=== PATIENT | male | born 1960 | race Caucasian/White ===

== ENCOUNTER 2020-04-04 12:54 | Inpatient (IN) | payer MEDICARE, SELFPAY ==
[2020-04-04] VITALS (11 sets, daily range): BP systolic 143–164; BP diastolic 75–92; PULSE 85–107; RESP 14–28; TEMP 36.6–37.1; O2SAT 82–98; BMI 36.6; BMI 43.9
--- NOTE | 2020-04-04 12:50 | ECG_ITS ---
APPROVED REPORT Exam: Resting ECG HR:108 bpm ECG Measurements Heart Rate 108 AXES MD 192 P 36 QRSd 100 QRS -4 QT 322 T 99 QTc 431 Conclusion Sinus tachycardia Minimal voltage criteria for LVH, may be normal variant Septal infarct, age undetermined Abnormal ECG Electronically signed by : Clark Chavez, 04/05/2020 08:59:57
--- NOTE | 2020-04-04 13:03 | HMH.EDSOB ---
ED Disposition Clinical Impression: Fluid retention Pulmonary edema Qualifiers: Chronicity: chronic Qualified Code(s): J81.1 - Chronic pulmonary edema Acute respiratory failure Qualifiers: Respiratory failure complication: hypoxia Qualified Code(s): J96.01 - Acute respiratory failure with hypoxia Disposition: Admitted As Inpatient Condition on Discharge: Good - Critical Care Critical Care Time: No Attestation: On , the high probability of a clinically significant, sudden or life threatening deterioration of the following system(s) required my full and direct attention, intervention and personal management. The time I documented below is in addition to time spent performing reported procedures but includes the following listed in this critical care notation. Medical Decision Making - Medical Records Medical records reviewed: Yes: I reviewed the patient's medical records. - [place] Inquiry Pt receiving controlled substance: No Vital Signs: 04/04/20 12:54 04/04/20 13:28 Temperature 98.2 F Temperature Source Oral Pulse Rate [Radial] 107 H 106 H Respiratory Rate 28 H 20 Blood Pressure [Right Arm] 160/88 H 156/92 H Blood Pressure Mean [Right Arm] 112 113 Blood Pressure Position [Right Arm] Sitting 02 Sat by Pulse Oximetry 82 L 92 L Oxygen Delivery Method Room Air - Lab Data Lab results reviewed: Yes: I reviewed the patient's lab results. Lab Results 04/04/20 12:30: WBC 9.3, RBC 3.76 L, Hgb 9.4 L, Hct 31.9 L, MCV 84.7, MCH 24.9 L, MCHC 29.4 L, RDW 15.0, Plt Count 204, MPV 7.6, Neut % (Auto) 84.4 H, Lymph % (Auto) 8.7 L, [place] % (Auto) 5.8, Eos % (Auto) 0.8, Baso % (Auto) 0.3, Neut # (Auto) 7.9 H, Lymph # (Auto) 0.8, [place] # (Auto) 0.5, Eos # (Auto) 0.1, Baso # (Auto) 0.0 04/04/20 12:30: Sodium 134 L, Potassium 5.7 H, Chloride 103, Carbon Dioxide 22, Anion Gap 14.7, BUN 26 H, Creatinine 1.00, Estimated Creat Clear 144, Estimated GFR 76, Est GFR ( Amer) 92, Glucose 363 H, Calcium 8.9, Total Bilirubin 0.6, AST 25, ALT 19, Alkaline Phosphatase 123, Troponin I 0.07 H, NT-Pro-B Natriuret Pep 638 H, Total Protein 7.8, Albumin 4.0, Globulin 3.8 H, Albumin/Globulin Ratio 1.1 04/04/20 14:00: Urine Color Yellow, Urine Appearance Clear, Urine pH 5.5, Ur Specific [place] 1.020, Urine Protein 1+, Urine Glucose (UA) 2+, Urine Ketones Negative, Urine Blood 1+, Urine Nitrate Negative, Urine Bilirubin Negative, Urine Urobilinogen 0.2, Ur Leukocyte Esterase Negative Result diagrams: 04/04/20 12:30 04/04/20 12:30 Orders (Tests/Meds): ED MEDICATIONS Discontinued Medications Generic Name Dose Route Start Last Admin Trade Name Freq PRN Reason Stop Dose Admin Furosemide 60 mg 04/04/20 13:13 04/04/20 13:33 Furosemide 40mg/4ml Vial IV 04/04/20 13:14 60 mg ONCE ONE Administration ORDERS Category Date Time Status Chest XR -- portable [XR chest portable] Stat Exams 04/04/20 13:13 Taken Covid-19 Nasal PCR ([facility]) Routine Lab 04/04/20 13:25 Received Troponin I Q3H Lab 04/04/20 16:15 Ordered Troponin I Q3H Lab 04/04/20 19:15 Ordered Urinalysis and Microscopic Stat Lab 04/04/20 14:00 Results CA echo doppler complete Stat Y 04/04/20 14:10 Ordered - Radiology Data #1 Image(s): Chest Image Reviewed: Yes I reviewed the patient's radiology image Bilateral pulmonary edema - ECG Data Tracing #1 EKG 1250 shows sinus tachycardia with a rate of 108. No acute ST segment elevation or depression. No hyperacute T waves. Normal intervals. EKG interpreted by me. Medical Decision Narrative: Patient with slightly elevated troponin, nonischemic EKG and no chest pain. This is likely secondary to his fluid retention, possibly undiagnosed CHF. His chest x-ray shows bilateral pulmonary edema. Exam findings consistent with significant fluid retention. He has a nontender abdomen. Creatinine within normal limits. Patient was given Lasix IV. No leukocytosis or fever that would suggest ac
--- NOTE | 2020-04-04 13:13 | XR_ITS ---
PROCEDURE: XR CHEST PORTABLE Referring Doctor: Jason Tao Patient Age:60Y CLINICAL HISTORY: soa Swelling legs abdomen. Former smoker. No surgery COMPARISON: No exams were available for comparison FINDINGS: Upright portable CXR. Vascular congestion and CHF with bilateral pulmonary edema Pulmonary edema with septal lines most evident towards the lung bases. Difficult to exclude additional pneumonic infiltrate left base but most likely appearance is due to the CHF/pulmonary edema. No prior studies available for comparison.. Only borderline/mild cardiomegaly. CP angle sharp with no evident pleural effusions on plain film. equipment monitor phototypesetting leads in place IMPRESSION: . CHF with bilateral pulmonary edema Dictated by: Cali Montes MD 04/04/2020 16:01 Cali Montes MD in [place] 04/04/2020 16:01
[2020-04-04 13:17] LABS: Basophils % 0.3 % (0.1-2.0); Eosinophils # 0.1 K/mm3 (0.0-0.4); Eosinophils % 0.8 % (0.1-12.0); Hematocrit 31.9 % (42.0-52.0); Hemoglobin 9.4 g/dL (14.1-18.0); Lymphocytes # 0.8 K/mm3 (0.7-4.5); Lymphocytes % 8.7 % (10-50); Mean Corpuscular HGB Conc 29.4 g/dL (31.8-35.4); Mean Corpuscular Hemoglobin 24.9 pg (27.0-31.2); Mean Corpuscular Volume 84.7 fl (80-94); Mean Platelet Volume 7.6 fl (7.4-10.4); Monocytes # 0.5 K/mm3 (0.1-1.0); Monocytes % 5.8 % (1.7-9.3); Neutrophils # 7.9 K/mm3 (1.8-7.8); Neutrophils % 84.4 % (37.0-80.0); Platelet Count 204 K/mm3 (142-424); Red Blood Count 3.76 M/mm3 (4.60-6.20); White Blood Count 9.3 K/mm3 (4.8-10.8)
[2020-04-04 13:18] LABS: Chloride 103 mmol/L (98-107); Potassium 5.7 mmoL/L (3.5-5.1); Sodium 134 mmol/L (136-145)
[2020-04-04 13:20] LABS: Alanine Aminotransferase 19 U/L (12-78); Aspartate Amino Transferase 25 U/L (17-59); Blood Urea Nitrogen 26 mg/dl (9-20); Creatinine Clearance Estimated 144 mL/min (50-200); Estimated Glomerular Filt Rate 76 ml/min (>60); GFR (African American) 92 ML/MIN (>60)
[2020-04-04 13:21] LABS: Albumin/Globulin Ratio 1.1 (1.1-1.8); Alkaline Phosphatase 123 U/L (38-126); Anion Gap 14.7 mEq/L (5-15); Bilirubin,Total 0.6 mg/dl (0.2-1.3); Calcium 8.9 mg/dl (8.4-10.2); Carbon Dioxide 22 mmol/L (22.0-30.0); Globulin 3.8 g/dL (1.3-3.2); Glucose 363 mg/dl (74-100); Total Protein,Serum 7.8 g/dl (6.3-8.2)
[2020-04-04 13:30] LABS: NT Pro Brain Natriuretic Pep. 638 pg/mL (0-125)
[2020-04-04 13:34] LABS: Troponin I 0.07 ng/ml (0.00-0.034)
[2020-04-04 14:06] LABS: Microscopic, Urine URINE MICROSCOPIC (MICROSCOPIC)
[2020-04-04 14:08] LABS: Appearance,Urine CLEAR (Clear); Bilirubin,Urine Negative (Negative); Blood, Urine 1+ (Negative); Color,Urine YELLOW (Yellow); Glucose,Urine (UA) 2+ (Negative); Ketones,Urine Negative (Negative); Leukocyte Esterase,Urine Negative (Negative); Nitrate,Urine Negative (Negative); PH,Urine 5.5 (5.0-8.5); Protein,Urine 1+ (Negative); Urobilinogen,Urine 0.2 EU/dl (0.2)
[2020-04-04 14:19] LABS: Squamous Epithelial Cell,Urine Occasional #/hpf (0-5)
--- NOTE | 2020-04-04 16:01 | PC.NURSE ---
Neg covid swab and notified floor of admission
--- NOTE | 2020-04-04 16:08 | PC.NURSE ---
pt void 1300cc urine
--- NOTE | 2020-04-04 16:18 | PC.NURSE ---
report given to natalia cruz
--- NOTE | 2020-04-04 17:28 | PC.WOUNDNOTE ---
Wound Location: RIGHT FOOT Length:4.5 Width:4 Depth: Undermining Y/N: Tunneling cm: Granulation %: Slough/necrotic tissue %: Inflammation/swelling Y/N: Y Pain and/or tenderness Y/N: Y Exudate: SMALL AMOUNT OF Serosanguinous Odor Y/N: Y
[2020-04-04 18:33] LABS: Troponin I 3.65 ng/ml (0.00-0.034)
--- NOTE | 2020-04-04 18:34 | PC.NURSE ---
Paged Dr. Lund at this time in RE to critical troponin.
--- NOTE | 2020-04-04 19:40 | PC.NURSE ---
Dr. Walton called and ordered metoprolol 50 tartrate mg q 12 po, 40 mg iv lasix. 600 plavix x 1, 81 mg asa q day, 2 inch nitro paste, and lovenox 1 mg/kg per Dr. Wen. See apr. He also ordered an EKG, which was NSR, made him aware. Pt has no complaints at this time and is on 4 L NC. States breathing has eased some, since first arriving to hospital. Report given. VSS
[2020-04-04 22:27] LABS: POC Glucose,Bedside 314 (70-110)
[2020-04-05] VITALS (11 sets, daily range): BP systolic 105–154; BP diastolic 68–81; PULSE 67–90; RESP 18–20; TEMP 36.1–37.4; O2SAT 94–99; BMI 42.5
--- NOTE | 2020-04-05 03:47 | PC.NURSE ---
Pt A&O x4 and has rested well through the night. Pt reports breathing has improved since admission. Pt currently on 4L NC, sats in the mid 90s. Pt has generalized edema, nonpitting edema in BLE, skin taut. Lungs are diminished throughout. Bowel sounds x4, abd round and firm but nontender. R foot ulcer drsg c/d/i. VSS, call light in reach, no concerns at this time.
[2020-04-05 05:29] LABS: POC Glucose,Bedside 187 (70-110)
--- NOTE | 2020-04-05 08:44 | HMH.PHAVTE ---
[facility] Pharmacy VTE Monitoring - Patient Demographics Admission date: 04/04/20 Report Date: 04/05/20 Time: 08:44 Allergies/Adverse Reactions: Patient Allergies bhaskar Allergy (Verified 04/04/20 13:05) Height: 1.88 m Weight: 150.6 kg Patient Problems: Current Active Problems Fluid retention (Acute) Pulmonary edema (Acute) Acute respiratory failure (Acute) - VTE Risk Labs: VTE Related Lab Results Hgb 9.4 g/dL (14.1-18.0) L 04/04/20 12:30 Hct 31.9 % (42.0-52.0) L 04/04/20 12:30 Plt Count 204 K/mm3 (142-424) 04/04/20 12:30 BUN 26 mg/dl (9-20) H 04/04/20 12:30 Creatinine 1.00 mg/dl (0.66-1.25) 04/04/20 12:30 Estimated Creat Clear 144 mL/min (50-200) 04/04/20 12:30 - Prophylaxis VTE Prophylaxis Ordered?: Yes Types of VTE Prophylaxis: TEDS Knee High, Pharmacological Location of Applied Device: Bilateral Lower Extremeties Pharmacologic Type: Enoxaparin
--- NOTE | 2020-04-05 08:48 | HMH.PHAINT ---
MEDICATION RECONCILIATION COMPLETED ON PATIENT USING EXTERNAL FILL HISTORY FROM PHARMACY. -CRICKET BLACK, YSABELD
[2020-04-05 10:01] LABS: Basophils % 0.5 % (0.1-2.0); Eosinophils # 0.2 K/mm3 (0.0-0.4); Eosinophils % 3.1 % (0.1-12.0); Hematocrit 29.5 % (42.0-52.0); Hemoglobin 8.8 g/dL (14.1-18.0); Lymphocytes # 0.8 K/mm3 (0.7-4.5); Lymphocytes % 12.8 % (10-50); Mean Corpuscular Hemoglobin 24.9 pg (27.0-31.2); Mean Corpuscular Volume 83.2 fl (80-94); Mean Platelet Volume 8.9 fl (7.4-10.4); Monocytes # 0.5 K/mm3 (0.1-1.0); Monocytes % 7.6 % (1.7-9.3); Neutrophils # 4.5 K/mm3 (1.8-7.8); Neutrophils % 76.1 % (37.0-80.0); Platelet Count 181 K/mm3 (142-424); Red Blood Count 3.55 M/mm3 (4.60-6.20); Red Cell Distribution Width 15.1 % (11.5-17.5); White Blood Count 5.9 K/mm3 (4.8-10.8)
--- NOTE | 2020-04-05 10:04 | HMH.HP ---
*Admission Date: 04/04/20 *Chief complaint: Shortness of breath *History of present illness: Mr Singh is a 60 year old male who lives in [place], [place] and typical receives his medical care at [facility], where his primary care provider is Dr. Melina Lawson. Patient reports a several week history of progressive leg edema and shortness of breath. He was came to [facility] yesterday for his monthly appointment with a Suboxone provider and while at the clinic became so short of breath that the staff there called 911. He was brought to the ER and found to be profoundly hypoxic. Patient denies chest pain and any previous heart or lung trouble. He smoked a pack of cigarettes per day for about 35 years but quit 8 years ago. He is diabetic but does not know his last A1c but does use insulin. [facility] History Medical History: Reports:: Diabetes Mellitus Type 2, Hypertension Denies:: Cancer, MRSA *Have you ever received a pneumonia vaccine?: No *Have you received a flu vaccine this season?: No Comment:: Opiate addiction, on Suboxone. Neuropathy. Chronic right foot wound. Multiple foot surgeries/amputations Amputation: Yes (R toes all, 2 toes on left) Comment: Open wound sole of right foot, followed by wound care and podiatry - *Social History Smoking Status: Former smoker Alcohol Intake: never *Occupational Status:: disabled *Travel in the last 8 weeks: None Family Hx:: Coronary Artery Disease Review of Systems - Constitutional Denies chills, Denies fever(s) - Eyes Denies blurry vision - ENT Denies change in voice - *Cardiovascular Denies chest pain - *Respiratory Denies cough - *Gastrointestinal Denies abdominal pain - *Genitourinary Denies difficulty urinating - *Musculoskeletal Denies joint pain - Integumentary/Breasts Denies rash - *Neurologic Denies dizziness - Psychiatric Denies confusion - Hematologic/Lymphatic Denies easy bruising Meds Home Medications Medication Instructions Recorded Confirmed Type Amlodipine Besylate [Norvasc 10mg 10 mg PO DAILY 04/04/20 04/04/20 History tablet] Aspirin [Aspirin 81mg chewable 81 mg PO DAILY 04/04/20 04/04/20 History tab] Atorvastatin Calcium [Lipitor 10mg 10 mg PO HS 04/04/20 04/04/20 History Tab] Benazepril HCl 40 mg PO DAILY 04/04/20 04/04/20 History Gabapentin [Gabapentin 300mg Cap] 300 mg PO BID 04/04/20 04/05/20 History Insulin Aspart Prot/Insuln Asp 60 unit SQ BID 04/04/20 04/04/20 History [Novolog Mix 70-30 Vial] Metformin HCl 500 mg PO BIDWM 04/04/20 04/05/20 History Buprenorphine HCl/Naloxone HCl 2 each SL DAILY 04/05/20 04/05/20 History [Buprenorphin-Naloxon 8-2 mg Sl] Terazosin HCl [Hytrin 1mg capsule] 1 mg PO DAILY 04/05/20 04/05/20 History Allergies Allergy/AdvReac Type Severity Reaction Status Date / Time bhaskar Allergy Verified 04/04/20 13:05 Exam Vital signs and Labs for Last 24 Hours: Temp Pulse Resp BP Pulse Ox 97.0 F L 76 20 149/79 H 97 04/05/20 07:56 04/05/20 07:56 04/05/20 07:56 04/05/20 07:56 04/05/20 07:56 Laboratory Results - last 24 hr 04/04/20 12:30: WBC 9.3, RBC 3.76 L, Hgb 9.4 L, Hct 31.9 L, MCV 84.7, MCH 24.9 L, MCHC 29.4 L, RDW 15.0, Plt Count 204, MPV 7.6, Neut % (Auto) 84.4 H, Lymph % (Auto) 8.7 L, [place] % (Auto) 5.8, Eos % (Auto) 0.8, Baso % (Auto) 0.3, Neut # (Auto) 7.9 H, Lymph # (Auto) 0.8, [place] # (Auto) 0.5, Eos # (Auto) 0.1, Baso # (Auto) 0.0 04/04/20 12:30: Sodium 134 L, Potassium 5.7 H, Chloride 103, Carbon Dioxide 22, Anion Gap 14.7, BUN 26 H, Creatinine 1.00, Estimated Creat Clear 144, Estimated GFR 76, Est GFR ( Amer) 92, Glucose 363 H, Calcium 8.9, Total Bilirubin 0.6, AST 25, ALT 19, Alkaline Phosphatase 123, Troponin I 0.07 H, NT-Pro-B Natriuret Pep 638 H, Total Protein 7.8, Albumin 4.0, Globulin 3.8 H, Albumin/Globulin Ratio 1.1 04/04/20 14:00: Urine Color Yellow, Urine Appearance Clear, Urine pH 5.5, Ur Specific [place] 1.020, Urine Prote
[2020-04-05 10:11] LABS: Alanine Aminotransferase 14 U/L (12-78); Albumin Level 3.7 g/dl (3.5-5.0); Alkaline Phosphatase 97 U/L (38-126); Aspartate Amino Transferase 36 U/L (17-59); Bilirubin,Direct 0.1 mg/dl (0.0-0.4); Bilirubin,Indirect 0.4 mg/dL (0.0-0.9); Bilirubin,Total 0.5 mg/dl (0.2-1.3); Bilirubin,Unconjugated 0.5 mg/dL (0.0-1.1); Total Protein,Serum 7.2 g/dl (6.3-8.2)
[2020-04-05 10:12] LABS: Alanine Aminotransferase 14 U/L (12-78); Albumin Level 3.7 g/dl (3.5-5.0); Albumin/Globulin Ratio 1.1 (1.1-1.8); Alkaline Phosphatase 100 U/L (38-126); Anion Gap 9.5 mEq/L (5-15); Aspartate Amino Transferase 29 U/L (17-59); Bilirubin,Total 0.5 mg/dl (0.2-1.3); Blood Urea Nitrogen 26 mg/dl (9-20); Calcium 8.9 mg/dl (8.4-10.2); Carbon Dioxide 30 mmol/L (22.0-30.0); Chloride 101 mmol/L (98-107); Creatinine Clearance Estimated 70 mL/min (50-200); Estimated Glomerular Filt Rate 56 ml/min (>60); GFR (African American) 68 ML/MIN (>60); Globulin 3.5 g/dL (1.3-3.2); Glucose 187 mg/dl (74-100); Potassium 5.5 mmoL/L (3.5-5.1); Sodium 135 mmol/L (136-145); Total Protein,Serum 7.2 g/dl (6.3-8.2)
[2020-04-05 10:41] LABS: Free T4 (Free Thyroxine) 1.14 ng/dl (0.78-2.19)
[2020-04-05 10:43] LABS: Prostate Specific Ag Screen 0.2 ng/ml (0.0-4.0)
--- NOTE | 2020-04-05 10:47 | PC.NURSE ---
1030 reported critical troponin to KENTRELL Reid at this time.
[2020-04-05 12:02] LABS: POC Glucose,Bedside 192 (70-110)
[2020-04-05 16:36] LABS: POC Glucose,Bedside 213 (70-110)
[2020-04-05 20:06] LABS: POC Glucose,Bedside 261 (70-110)
--- NOTE | 2020-04-05 20:24 | PC.NURSE ---
Alert and oriented. No c/o, NAD. CB in reach. No acute changes. Has been up to chair this shift. VSS. FS ACHS with ssi. Has worn 02 intermittently. Sats 94% on RA
[2020-04-06] VITALS (24 sets, daily range): BP systolic 106–179; BP diastolic 66–92; PULSE 56–80; RESP 16–22; TEMP 36.7–37; O2SAT 91–99; BMI 42.0; BMI 42.1
--- NOTE | 2020-04-06 | IR_ITS ---
APPROVED REPORT Patient Location: Inpatient Tire Mold Tester: TRENTON Fletcher RT (R) PROCEDURES Left heart catheterization Left ventriculogram Selective coronary angiogram Drug-eluting stent deployment to the proximal dominant right coronary Drug-eluting stent deployment to the circumflex arteries large first obtuse marginal artery INDICATION Coronary disease, Acute non-ST elevation myocardial infarction Informed consent was obtained prior to the procedure. COMPLICATIONS none Estimated Blood Loss: less than 10 mls TECHNIQUE One percent lidocaine used to anesthetize the right anterior aspect of the wrist. The right radial artery was accessed via the Seldinger technique. A 6 Camb[place]ian sheath was placed in the right radial artery. 2.5 mg of verapamil, 800 mcg of nitroglycerin, 1mg Lidocaine and 5000 U Heparin were given through the arterial sheath. The trap catheter was also used to perform left heart catheterization, left ventriculogram and selective coronary angiogram. At the end of the diagnostic angiogram therapeutic heparin was administered giving a therapeutic ACT. And I Stephanie left guide catheter was used to intubate the right coronary artery and a Choice PT wire was placed distally. A 3.5 x 34 mm resolute [place] stent was deployed at 18 saqib reducing the severe stenosis to 0%. NILO-3 flow was present before and after the procedure. Following this the catheter was placed in the left main artery and a Choice PT wire was placed into the distal first obtuse marginal artery. A 2.75 x 26 mm resolute Harsh stent was deployed at 20 saqib reducing the severe stenosis to 0%. NILO-3 flow was present before and after the procedure. At the end of the procedure the apparatus was removed the sheath was removed and hemostasis was achieved using TR banding patient was transferred to the postop holding in stable addition. ANGIOGRAPHIC RESULTS The left main artery Normal The left anterior descending artery Is proximally calcified mostly external. There is a proximal 30% intraluminal encroachment of the external calcium. Mid segment has 20% nonflow limiting stenoses The circumflex artery Is nondominant it gives rise to a large first obtuse marginal artery which has proximal 70 to 80% concentric stenosis The right coronary artery Is a dominant vessel and has proximal 70% stenosis with mild distal luminal irregularities The GASPAR ventriculogram reveals Not performed The left ventricular end-diastolic pressure Not obtained IMPRESSION Severe two-vessel coronary artery disease Successful stenting of the proximal dominant right coronary severe disease reduced to 0% with 1 drug-eluting stent Successful stenting of the proximal circumflex arteries first obtuse marginal artery severe disease reduced to 0% with 1 drug-eluting stent PLAN 1. Brilinta and aspirin 2. LDL less than 55 3. Cardiac rehabilitation 4. Avoidance of tobacco products 5. Echocardiogram to evaluate diastolic properties and ejection fraction 6. Risk factor modification Electronically signed by : Herson Wen, 04/06/2020 13:45:22
--- NOTE | 2020-04-06 04:35 | PC.NURSE ---
Pt A&O x4, has slept well through the night. No c/o pain or discomfort. Tele notes 1st degree block. BLE have nonpitting edema, generalized edema throughout. Foot ulcer was washed out with saline and rewrapped. Pt on 2L NC, sats in the low 90s. Pt reports improved breathing. NPO since midnight for possible heart cath in the AM. VSS, call light in reach, no concerns at this time.
--- NOTE | 2020-04-06 06:00 | PC.NURSE ---
Jp OLIVARES NOTIFIED OF CONSULT
[2020-04-06 06:06] LABS: POC Glucose,Bedside 158 (70-110)
--- NOTE | 2020-04-06 08:00 | CA_ITS ---
APPROVED REPORT EXAM: Comprehensive 2D, Doppler, and color-flow Echocardiogram Customer Support Associate: Olivia Dewey RT(R) Ht: 6 ft 2 in Wt: 285lbs BSA: 2.53 BP: 156/92 mmHg Indications: edema, HTN, DM, elevated troponin, nonischemic EKG, rule out CHF 2D Dimensions LVOT 2.54 cm (M/F) 1.5-2.5 M-Mode Dimensions RVDd 2.48 cm (0.9-2.6) LA Diam 4.57 cm (1.9-4.0) LVDd 6.50 cm (3.5-5.7) Ao Diam 3.15 cm (2.0-3.7) LVDs 3.93 cm (3.5-5.7) IVSd 0.94 cm (0.6-1.1) PWd 1.26 cm (0.6-1.1) EF (Teich) 68.90% FS 39.50% EDV (Teich) 216.00 mL ESV (Teich) 67.10 mL LV Diastology E Decel Time 183.00 (160-240 msec) E/A Ratio 1.0 MED E' 10.20 (< 7 cm/sec) E'/MED E' Ratio 8.73 (>14) LAT E' 7.80 (<10 cm/sec) E/LAT E' Ratio 11.41 (>14) Mitral Valve MV E Max Adilson. 89.00 (40-130 cm/s) MV A Velocity 89.00 (40-130 cm/s) E/A Ratio 1.00 MV Decel. Time 183.00 (160-240 ms) MV PHT 54.00 ms Tricuspid Valve TR P. Velocity 258.00 cm/s RAP Estimate 10.00 mmHg RVSP 36.60 mmHg Left Ventricle Left atrium is mildly enlarged, left ventricle is normal size, mild concentric left ventricular hypertrophy, visually estimated ejection fraction 50%, there is abnormal septal motion. Grade 1 diastolic dysfunction seen without tissue Doppler evidence of raise left atrial pressure. Right Ventricle Right atrium and right ventricle are normal size and contractility. Aortic Valve Aortic valve is minimally thickened and fibrosed. There is no aortic stenosis or aortic insufficiency. Mitral Valve Mitral valve is grossly normal, there is mild mitral regurgitation. Tricuspid Valve Tricuspid valve is grossly normal, there is mild tricuspid regurgitation, tricuspid regurgitation jet velocity is inadequate for calculation of the right ventricular systolic pressure. Pulmonic Valve Pulmonic valve is poorly visualized. Great Vessels Aortic root is normal size. Pericardium No significant pericardial effusion noted. Conclusion 1. Mildly enlarged left atrium, normal left ventricular size, mild concentric left ventricular hypertrophy, visually estimated ejection fraction 50% with no regional wall motion abnormality, grade 1 diastolic dysfunction seen without tissue Doppler evidence of raise left atrial pressure. 2. Mild mitral and tricuspid regurgitation. 3. No significant pericardial effusion noted. Electronically signed by : Michael Reynolds, 04/06/2020 20:11:44
--- NOTE | 2020-04-06 09:07 | HMH.ACPN2 ---
<Marley Dalal - Last Filed: 04/06/20 09:07> Internal Medicine - PN: Subj *Date: 04/06/20 *Time: 09:07 Interval history: Patient states his breathing is fine this morning. He states that he has never had any chest pain. Echo was completed this a.m. He is n.p.o. for cardiac visit. He ate fine yesterday. He states since he is been diuresed his breathing is back to normal. He is concerned about his foot wound and completing wound care as per wound care clinic. Laboratory data this morning show hemoglobin of 8.8 hematocrit of 29.5. Troponin I has been elevated at 0.07, 3.65, and then 3.1 all. Weight has decreased by 5 pounds with greater than 4 L urinary output yesterday. Exam Vital signs and Labs for Last 24 Hours: Temp Pulse Resp BP Pulse Ox 98.6 F 66 18 167/73 H 96 04/06/20 07:33 04/06/20 07:33 04/06/20 07:33 04/06/20 07:33 04/06/20 07:33 Laboratory Results - last 24 hr 04/05/20 09:50: Total Bilirubin 0.5, Direct Bilirubin 0.1, Conjugated Bilirubin 0.0, Indirect Bilirubin 0.4, Unconjugated Bilirubin 0.5, AST 36 D, ALT 14 D, Alkaline Phosphatase 97, Troponin I 3.10 H, Total Protein 7.2, Albumin 3.7, PSA Screen 0.2, TSH 0.70 04/05/20 09:50: Free T4 1.14 04/05/20 09:50: WBC 5.9 D, RBC 3.55 L, Hgb 8.8 L, Hct 29.5 L, MCV 83.2, MCH 24.9 L, MCHC 30.0 L, RDW 15.1, Plt Count 181, MPV 8.9, Neut % (Auto) 76.1, Lymph % (Auto) 12.8, [place] % (Auto) 7.6, Eos % (Auto) 3.1, Baso % (Auto) 0.5, Neut # (Auto) 4.5, Lymph # (Auto) 0.8, [place] # (Auto) 0.5, Eos # (Auto) 0.2, Baso # (Auto) 0.0 04/05/20 09:50: Sodium 135 L, Potassium 5.5 H, Chloride 101, Carbon Dioxide 30 D, Anion Gap 9.5, BUN 26 H, Creatinine 1.30 H D, Estimated Creat Clear 70, Estimated GFR 56 L, Est GFR ( Amer) 68 D, Glucose 187 H D, Calcium 8.9, Total Bilirubin 0.5, AST 29, ALT 14, Alkaline Phosphatase 100, Total Protein 7.2, Albumin 3.7, Globulin 3.5 H, Albumin/Globulin Ratio 1.1 04/05/20 11:54: POC Glucose 192 H 04/05/20 16:27: POC Glucose 213 H 04/05/20 19:49: POC Glucose 261 H 04/06/20 05:54: POC Glucose 158 H I & O for Last 24 hours: Intake & Output 04/03/20 04/04/20 04/05/20 04/06/20 11:59 11:59 11:59 11:59 Intake Total 1160 / 1160 720 / 720 Output Total 4125 / 4125 650 / 650 Balance -2965 / -2965 70 / 70 Weight 332 lb 0.258 oz 327 lb 9.71 oz - Constitutional no acute distress Comments: Lying in bed and appears comfortable. Speaks without dyspnea. - *Routine Respiratory Exam Present: wheezes (Rare), crackles ([place] on the right) - *Routine Cardiovascular Exam Present: RRR - *Routine Abdominal Exam Present: soft, normoactive bowel sounds, tenderness, obese - *Routine Extremities Exam Present: edema (Right leg is larger than the left) Comments: Dressing on right foot clean and dry - *Routine Neurological Exam Present: alert, oriented X3 Assessment and Plan (1) Acute respiratory failure with hypoxia Status: Acute Category: Medical Code(s): J96.01 - Acute respiratory failure with hypoxia (2) Elevated troponin I level Status: Acute Category: Medical Code(s): R77.8 - Other specified abnormalities of plasma proteins (3) Non-STEMI (non-ST elevated myocardial infarction) Status: Acute Category: Medical Code(s): I21.4 - Non-ST elevation (NSTEMI) myocardial infarction (4) Diabetes mellitus Status: Acute Category: Medical Code(s): E11.9 - Type 2 diabetes mellitus without complications (5) HTN (hypertension) Status: Acute Category: Medical Code(s): I10 - Essential (primary) hypertension (6) Obesity Status: Acute Category: Medical Code(s): E66.9 - Obesity, unspecified (7) Fluid retention Status: Acute Category: Medical Code(s): R60.9 - Edema, unspecified (8) Pulmonary edema Status: Acute Qualifiers: Chronicity: chronic Qualified Code(s): J81.1 - Chronic pulmonary edema Category: Medical Code(s): J81.1 - Chronic pulmonary edema (9) Wound of
[2020-04-06 09:43] LABS: Basophils % 0.1 % (0.1-2.0); Eosinophils # 0.2 K/mm3 (0.0-0.4); Eosinophils % 3.5 % (0.1-12.0); Hemoglobin 9.3 g/dL (14.1-18.0); Lymphocytes # 1.3 K/mm3 (0.7-4.5); Mean Corpuscular HGB Conc 30.1 g/dL (31.8-35.4); Mean Corpuscular Hemoglobin 24.7 pg (27.0-31.2); Mean Platelet Volume 8.8 fl (7.4-10.4); Monocytes # 0.5 K/mm3 (0.1-1.0); Monocytes % 7.9 % (1.7-9.3); Neutrophils # 4.6 K/mm3 (1.8-7.8); Neutrophils % 69.4 % (37.0-80.0); Platelet Count 214 K/mm3 (142-424); Red Blood Count 3.78 M/mm3 (4.60-6.20); White Blood Count 6.6 K/mm3 (4.8-10.8)
[2020-04-06 09:49] LABS: Chloride 102 mmol/L (98-107); Sodium 136 mmol/L (136-145)
[2020-04-06 09:50] LABS: Potassium 5.3 mmoL/L (3.5-5.1)
[2020-04-06 09:52] LABS: Blood Urea Nitrogen 26 mg/dl (9-20); Creatinine Clearance Estimated 76 mL/min (50-200); Estimated Glomerular Filt Rate 62 ml/min (>60); GFR (African American) 75 ML/MIN (>60)
[2020-04-06 09:53] LABS: Anion Gap 7.3 mEq/L (5-15); Calcium 9.1 mg/dl (8.4-10.2); Carbon Dioxide 32 mmol/L (22.0-30.0); Glucose 147 mg/dl (74-100)
--- NOTE | 2020-04-06 10:00 | ECG_ITS ---
APPROVED REPORT Exam: Resting ECG HR:63 bpm ECG Measurements Heart Rate 63 AXES DC 224 P 50 QRSd 96 QRS 11 QT 382 T 55 QTc 390 Conclusion Sinus rhythm with 1st degree AV block Otherwise normal ECG Electronically signed by : Clark Chavez, 04/06/2020 17:39:28
--- NOTE | 2020-04-06 10:10 | HMH.CNCARD ---
History of Present Illness Consult date: 04/06/20 Requesting physician: Zach Walton Consult reason: shortness of breath Chief complaint: SOA, edema Additional Medical History:: 1. History of tobacco use, discontinued 9 years ago 2. History of opioid abuse related to multiple surgeries of the lower extremities, currently in Suboxone clinic 3. Diabetes mellitus, insulin requiring A. Bilateral foot surgeries with loss of toes on the left foot and transmetatarsal amputation of right foot 4. Hypertension 5. Hyperlipidemia 6. Patient was adopted 7. Anemia, likely related to chronic disease History of present illness: Mr Singh is a 60 year old male who lives in [place], [place] and typical receives his medical care at [facility], where his primary care provider is Dr. Melina Lawson. Patient reports a several week history of progressive leg edema and shortness of breath. He was came to [place] yesterday for his monthly appointment with a Suboxone provider and while at the clinic became so short of breath that the staff there called 911. He was brought to the ER and found to be profoundly hypoxic. Patient denies chest pain and any previous heart or lung trouble. He smoked a pack of cigarettes per day for about 35 years but quit 8 years ago. He is diabetic but does not know his last A1c but does use insulin. The above per Dr. Walton. Patient denies any exertional chest pain, pressure or tightness but does relate significant decrease in his exercise capacity over the last 1 to 2 weeks. [facility] History Medical History: Reports:: Diabetes Mellitus Type 2, Hypertension Denies:: Cancer, MRSA *Have you ever received a pneumonia vaccine?: No *Have you received a flu vaccine this season?: No Amputation: Yes (R toes all, 2 toes on left) - *Social History Smoking Status: Former smoker Alcohol Intake: never *Occupational Status:: disabled *Travel in the last 8 weeks: None Family Hx:: Coronary Artery Disease Meds Home Medications Medication Instructions Recorded Confirmed Type Amlodipine Besylate [Norvasc 10mg 10 mg PO DAILY 04/04/20 04/04/20 History tablet] Aspirin [Aspirin 81mg chewable 81 mg PO DAILY 04/04/20 04/04/20 History tab] Atorvastatin Calcium [Lipitor 10mg 10 mg PO HS 04/04/20 04/04/20 History Tab] Benazepril HCl 40 mg PO DAILY 04/04/20 04/04/20 History Gabapentin [Gabapentin 300mg Cap] 300 mg PO BID 04/04/20 04/05/20 History Insulin Aspart Prot/Insuln Asp 60 unit SQ BID 04/04/20 04/04/20 History [Novolog Mix 70-30 Vial] Metformin HCl 500 mg PO BIDWM 04/04/20 04/05/20 History Buprenorphine HCl/Naloxone HCl 2 each SL DAILY 04/05/20 04/05/20 History [Buprenorphin-Naloxon 8-2 mg Sl] Terazosin HCl [Hytrin 1mg capsule] 1 mg PO DAILY 04/05/20 04/05/20 History Allergies Allergy/AdvReac Type Severity Reaction Status Date / Time [email or web address] Allergy Verified 04/04/20 13:05 Exam Vital signs and Labs for Last 24 Hours: Temp Pulse Resp BP Pulse Ox 98.6 F 66 18 167/73 H 96 04/06/20 07:33 04/06/20 07:33 04/06/20 07:33 04/06/20 07:33 04/06/20 07:33 Laboratory Results - last 24 hr 04/05/20 09:50: Total Bilirubin 0.5, Direct Bilirubin 0.1, Conjugated Bilirubin 0.0, Indirect Bilirubin 0.4, Unconjugated Bilirubin 0.5, AST 36 D, ALT 14 D, Alkaline Phosphatase 97, Troponin I 3.10 H, Total Protein 7.2, Albumin 3.7, PSA Screen 0.2, TSH 0.70 04/05/20 09:50: Free T4 1.14 04/05/20 09:50: Sodium 135 L, Potassium 5.5 H, Chloride 101, Carbon Dioxide 30 D, Anion Gap 9.5, BUN 26 H, Creatinine 1.30 H D, Estimated Creat Clear 70, Estimated GFR 56 L, Est GFR ( Amer) 68 D, Glucose 187 H D, Calcium 8.9, Total Bilirubin 0.5, AST 29, ALT 14, Alkaline Phosphatase 100, Total Protein 7.2, Albumin 3.7, Globulin 3.5 H, Albumin/Globulin Ratio 1.1 04/05/20 11:54: POC Glucose 192 H 04/05/20 16:27: POC Glucose 213 H 04/05/20 19:49: POC Glucose 261 H 04/06/20 05:54: POC Glucose 158 H 04/06
--- NOTE | 2020-04-06 12:38 | PC.NURSE ---
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
[2020-04-06 13:20] LABS: POC Glucose,Bedside 139 (70-110)
[2020-04-06 13:52] LABS: CATHL Activated Clotting Time 349 SEC (74-125)
--- NOTE | 2020-04-06 14:54 | SW/DCPLANNER ---
PATIENT HAS REQUESTED INFORMATION ON LIVING WILL... I HAVE PRINTED OFF A COPY FOR HIM TO REVIEW AND WILL SPEAK WITH HIM AGAIN IF HE HAS ANY QUESTIONS....HE IS CLOSE TO BEING ABLE TO DISCHARGE... ANYTHING ELSE THAT IS NEEDED WILL BE SET UP AT TIME OF DISCHARGE....
[2020-04-06 15:50] LABS: POC Glucose,Bedside 170 (70-110)
--- NOTE | 2020-04-06 20:16 | PC.NURSE ---
Pt alert and oriented and able to make needs known. VSS. Pt has voided at least another 1400 ml since last dose of lasix. CB in reach. PT does have an olive sized hematoma to R wrist cath site. Tegaderm applied for visualization of site. No changes, pain or bleeding. Dr. Wen was notified and he stated just to mx the site. NNO given.
[2020-04-06 20:50] LABS: POC Glucose,Bedside 299 (70-110)
[2020-04-07 04:00] VITALS: BP 147/78; PULSE 60; PULSE 65; RESP 18; TEMP 36.7; O2SAT 95
--- NOTE | 2020-04-07 04:06 | PC.NURSE ---
pt has rested well throughout shift, pt is alert and oriented and able to make needs known, pts lungs remain clear to auscultate, heart regular, pt remains on telemetry, bs x 4, pt has had good urine output this shift see I&O, dressing to right foot was changed at 0030 per pts request wound bed is beefy red with yellow slough around edges and a small amount in the middle of the wound, the wound was cleaned and 4x4 and kerlix applied pt tolerated well, pt has complained of nausea x 1 pt states nausea is d/t no suboxone in two days and it makes me sick if I dont receive that zofran was effective to ease those symptoms, no episodes of chest pain noted this shift, SOB improved pt has remained on 2L while sleeping d/t o2 dropping to 85% while sleeping, o2 quickly recovered when o2 was applied at 2L and has remained stable while pt sleeping, pt has remained somewhat hypertensive with systolic bp ranging from 150-164, pt asymptomatic with this denies dizziness nitro paste remains in place, no distress noted at this time will continue to monitor
[2020-04-07 05:00] VITALS: BMI 18.2
[2020-04-07 05:34] LABS: POC Glucose,Bedside 192 (70-110)
[2020-04-07 06:25] LABS: Basophils % 0.3 % (0.1-2.0); Eosinophils # 0.2 K/mm3 (0.0-0.4); Eosinophils % 3.5 % (0.1-12.0); Hemoglobin 8.7 g/dL (14.1-18.0); Lymphocytes # 1.3 K/mm3 (0.7-4.5); Mean Corpuscular HGB Conc 29.9 g/dL (31.8-35.4); Mean Corpuscular Hemoglobin 24.6 pg (27.0-31.2); Mean Corpuscular Volume 82.2 fl (80-94); Mean Platelet Volume 8.1 fl (7.4-10.4); Monocytes # 0.6 K/mm3 (0.1-1.0); Monocytes % 9.3 % (1.7-9.3); Neutrophils # 3.9 K/mm3 (1.8-7.8); Neutrophils % 64.8 % (37.0-80.0); Platelet Count 188 K/mm3 (142-424); Red Blood Count 3.53 M/mm3 (4.60-6.20)
[2020-04-07 06:32] LABS: Chloride 100 mmol/L (98-107); Potassium 5.1 mmoL/L (3.5-5.1); Sodium 137 mmol/L (136-145)
[2020-04-07 06:35] LABS: Anion Gap 7.1 mEq/L (5-15); Blood Urea Nitrogen 24 mg/dl (9-20); Carbon Dioxide 35 mmol/L (22.0-30.0); Creatinine Clearance Estimated 76 mL/min (50-200); Estimated Glomerular Filt Rate 62 ml/min (>60); GFR (African American) 75 ML/MIN (>60)
[2020-04-07 06:36] LABS: Calcium 8.7 mg/dl (8.4-10.2); Glucose 170 mg/dl (74-100)
--- NOTE | 2020-04-07 07:28 | HMH.PNCARD ---
Subjective Date: 04/07/20 Time: 07:28 Principal diagnosis: Non-ST elevation HI Interval history: 60-year-old white male in bed in no acute distress. States he is feeling much better than admission. Breathing has improved and edema has improved as well. Patient is a non-smoker Encouraged better control of his diabetes. Exam Vital signs and Labs for Last 24 Hours: Temp Pulse Resp BP Pulse Ox 98.0 F 65 18 147/78 H 95 04/07/20 04:00 04/07/20 04:00 04/07/20 04:00 04/07/20 04:00 04/07/20 04:00 Laboratory Results - last 24 hr 04/06/20 09:28: Sodium 136, Potassium 5.3 H, Chloride 102, Carbon Dioxide 32 H, Anion Gap 7.3, BUN 26 H, Creatinine 1.20, Estimated Creat Clear 76, Estimated GFR 62, Est GFR ( Amer) 75, Glucose 147 H D, Calcium 9.1 04/06/20 09:28: WBC 6.6, RBC 3.78 L, Hgb 9.3 L, Hct 31.0 L, MCV 82.0, MCH 24.7 L, MCHC 30.1 L, RDW 15.0, Plt Count 214, MPV 8.8, Neut % (Auto) 69.4, Lymph % (Auto) 19.0, [place] % (Auto) 7.9, Eos % (Auto) 3.5, Baso % (Auto) 0.1, Neut # (Auto) 4.6, Lymph # (Auto) 1.3, [place] # (Auto) 0.5, Eos # (Auto) 0.2, Baso # (Auto) 0.0 04/06/20 11:08: POC Glucose 139 H 04/06/20 14:29: Activated Clotting Time 349 H* 04/06/20 15:41: POC Glucose 170 H 04/06/20 19:47: POC Glucose 299 H 04/07/20 05:26: POC Glucose 192 H 04/07/20 05:57: WBC 6.0, RBC 3.53 L, Hgb 8.7 L, Hct 29.0 L, MCV 82.2, MCH 24.6 L, MCHC 29.9 L, RDW 15.0, Plt Count 188, MPV 8.1, Neut % (Auto) 64.8, Lymph % (Auto) 22.0, [place] % (Auto) 9.3, Eos % (Auto) 3.5, Baso % (Auto) 0.3, Neut # (Auto) 3.9, Lymph # (Auto) 1.3, [place] # (Auto) 0.6, Eos # (Auto) 0.2, Baso # (Auto) 0.0 04/07/20 05:57: Sodium 137, Potassium 5.1, Chloride 100, Carbon Dioxide 35 H, Anion Gap 7.1, BUN 24 H, Creatinine 1.20, Estimated Creat Clear 76, Estimated GFR 62, Est GFR ( Amer) 75, Glucose 170 H, Calcium 8.7 I & O for Last 24 hours: Intake & Output 04/04/20 04/05/20 04/06/20 04/07/20 11:59 11:59 11:59 11:59 Intake Total 1160 / 1160 720 / 720 600 / 600 Output Total 4125 / 4125 650 / 650 4900 / 4900 Balance -2965 / -2965 70 / 70 -4300 / -4300 Weight 332 lb 0.258 oz 328 lb 7.82 oz - *Routine Respiratory Exam Present: CTA bilaterally - *Routine Cardiovascular Exam Present: RRR - *Routine Extremities Exam Present: edema. Absent: cyanosis, clubbing Progress Note: A&P (1) Acute respiratory failure with hypoxia Status: Acute (2) Elevated troponin I level Status: Acute (3) Non-STEMI (non-ST elevated myocardial infarction) Status: Acute Assessment and plan: Status post drug-eluting stent placement to RCA and circumflex systems. Continue aspirin and Plavix. (4) Diabetes mellitus Status: Acute (5) HTN (hypertension) Status: Acute Assessment and plan: Blood pressure improved but not to goal. Will add irbesartan 150 mg daily. Will need to monitor his potassium level closely. Continue metoprolol 50 mg twice daily. Echocardiogram showed preserved ejection fraction with no wall motion abnormality. (6) Obesity Status: Acute (7) Fluid retention Status: Acute Assessment and plan: We will give additional Lasix today. I do not think patient will need daily Lasix as an outpatient. (8) Pulmonary edema Status: Acute (9) Wound of foot Status: Acute (10) Anemia Status: Acute Assessment and Plan for All Diagnoses:: Cardiac status is stable. Patient could be discharged home later today with follow-up in our office next week with BMP to assess for recurrent hyperkalemia.
[2020-04-07 07:30] VITALS: BP 162/77; PULSE 69; RESP 19; TEMP 36.8; O2SAT 97
[2020-04-07 08:00] VITALS: PULSE 66
--- NOTE | 2020-04-07 08:53 | HMH.ACPN2 ---
<Marley Dalal - Last Filed: 04/07/20 09:12> Internal Medicine - PN: Subj *Date: 04/07/20 *Time: 09:12 Interval history: Patient states he needs to go home before the roads get worse and to take care of his dog. He denies chest pain and shortness of breath. He has oxygen on at present. O2 removed and will check O2 sats. Deep breaths encouraged. He states the swelling in his legs is so much better. Laboratory data with stable blood chemistries. Hemoglobin this morning is 8.7 with hematocrit of 29. Exam Vital signs and Labs for Last 24 Hours: Temp Pulse Resp BP Pulse Ox 98.2 F 69 19 162/77 H 97 04/07/20 07:30 04/07/20 07:30 04/07/20 07:30 04/07/20 07:30 04/07/20 07:30 Laboratory Results - last 24 hr 04/06/20 09:28: Sodium 136, Potassium 5.3 H, Chloride 102, Carbon Dioxide 32 H, Anion Gap 7.3, BUN 26 H, Creatinine 1.20, Estimated Creat Clear 76, Estimated GFR 62, Est GFR ( Amer) 75, Glucose 147 H D, Calcium 9.1 04/06/20 09:28: WBC 6.6, RBC 3.78 L, Hgb 9.3 L, Hct 31.0 L, MCV 82.0, MCH 24.7 L, MCHC 30.1 L, RDW 15.0, Plt Count 214, MPV 8.8, Neut % (Auto) 69.4, Lymph % (Auto) 19.0, [place] % (Auto) 7.9, Eos % (Auto) 3.5, Baso % (Auto) 0.1, Neut # (Auto) 4.6, Lymph # (Auto) 1.3, [place] # (Auto) 0.5, Eos # (Auto) 0.2, Baso # (Auto) 0.0 04/06/20 11:08: POC Glucose 139 H 04/06/20 14:29: Activated Clotting Time 349 H* 04/06/20 15:41: POC Glucose 170 H 04/06/20 19:47: POC Glucose 299 H 04/07/20 05:26: POC Glucose 192 H 04/07/20 05:57: WBC 6.0, RBC 3.53 L, Hgb 8.7 L, Hct 29.0 L, MCV 82.2, MCH 24.6 L, MCHC 29.9 L, RDW 15.0, Plt Count 188, MPV 8.1, Neut % (Auto) 64.8, Lymph % (Auto) 22.0, [place] % (Auto) 9.3, Eos % (Auto) 3.5, Baso % (Auto) 0.3, Neut # (Auto) 3.9, Lymph # (Auto) 1.3, [place] # (Auto) 0.6, Eos # (Auto) 0.2, Baso # (Auto) 0.0 04/07/20 05:57: Sodium 137, Potassium 5.1, Chloride 100, Carbon Dioxide 35 H, Anion Gap 7.1, BUN 24 H, Creatinine 1.20, Estimated Creat Clear 76, Estimated GFR 62, Est GFR ( Amer) 75, Glucose 170 H, Calcium 8.7 I & O for Last 24 hours: Intake & Output 04/04/20 04/05/20 04/06/20 04/07/20 11:59 11:59 11:59 11:59 Intake Total 1160 / 1160 720 / 720 600 / 600 Output Total 4125 / 4125 650 / 650 5500 / 5500 Balance -2965 / -2965 70 / 70 -4900 / -4900 Weight 332 lb 0.258 oz 328 lb 7.82 oz 142 lb 2 oz - Constitutional no acute distress Comments: Appears comfortable. - *Routine Respiratory Exam Present: CTA bilaterally (Anteriorly and posteriorly) - *Routine Cardiovascular Exam Present: RRR - *Routine Abdominal Exam Present: soft, normoactive bowel sounds. Absent: tenderness - *Routine Extremities Exam Comments: Some persistent edema in the right leg. No edema in the left leg. Dressing on right foot is clean and dry. - *Routine Neurological Exam Present: alert, oriented X3 Assessment and Plan (1) Acute respiratory failure with hypoxia Status: Acute Category: Medical Code(s): J96.01 - Acute respiratory failure with hypoxia (2) Elevated troponin I level Status: Acute Category: Medical Code(s): R77.8 - Other specified abnormalities of plasma proteins (3) Non-STEMI (non-ST elevated myocardial infarction) Status: Acute Category: Medical Code(s): I21.4 - Non-ST elevation (NSTEMI) myocardial infarction (4) Diabetes mellitus Status: Acute Category: Medical Code(s): E11.9 - Type 2 diabetes mellitus without complications (5) HTN (hypertension) Status: Acute Category: Medical Code(s): I10 - Essential (primary) hypertension (6) Obesity Status: Acute Category: Medical Code(s): E66.9 - Obesity, unspecified (7) Fluid retention Status: Acute Category: Medical Code(s): R60.9 - Edema, unspecified (8) Pulmonary edema Status: Acute Qualifiers: Chronicity: chronic Qualified Code(s): J81.1 - Chronic pulmonary edema Category: Medical Code(s): J81.1 - Chronic pulmonary edema (9) Wound of foot Status:
[2020-04-07 09:52] VITALS: O2SAT 97
--- NOTE | 2020-04-07 11:28 | HMH.PHACLD ---
Darrick VitoNabilVito Francisco has received discharge medication counseling on the following medications: PATIENT STARTED ON ATORVASTATIN 40 MG HS, METOPROLOL 50 MG BID, AND CLOPIDOGREL 75 MG DAILY. PATIENT WAS ALREADY TAKING ASPIRIN 81 MG DAILY AND BENAZEPRIL 40 MG DAILY. MD STOPPING AMLODIPINE.
--- NOTE | 2020-04-08 14:00 | HMH.DCSUM ---
General - General Admission date:: 04/04/20 Discharge date: 04/07/20 HPI HPI: Mr Singh is a 60 year old male who lives in [place], [place] and typical receives his medical care at [facility], where his primary care provider is Dr. Melina Lawson. Patient reports a several week history of progressive leg edema and shortness of breath. He was came to [place] yesterday for his monthly appointment with a Suboxone provider and while at the clinic became so short of breath that the staff there called 911. He was brought to the ER and found to be profoundly hypoxic. Patient denies chest pain and any previous heart or lung trouble. He smoked a pack of cigarettes per day for about 35 years but quit 8 years ago. He is diabetic but does not know his last A1c but does use insulin. Hospital Course Hospital Course: The patient was diuresed about 4 L and his oxygen sats did improve. His troponin was elevated, therefor last June cardiology was consulted due to palpable NSTEMI. An echo was also ordered. His chest x-ray showed CHF with pulmonary edema. His echo showed an EF of 50% with grade 1 diastolic dysfunction. Cardiology saw the patient and recommended a heart cath. This was performed and he had 2 stents placed. He was started on Lasix as well as aspirin and Plavix. By 04/07/2020, the patient felt much better. He denied chest pain or shortness of breath. The swelling in his legs had improved. He was anemic and it was felt he would need anemia studies as an outpatient. His oxygen was 97% on room air and cardiology felt he was stable to be discharged home with a follow-up in their office. His amlodipine was stopped and he was started on metoprolol, HCTZ, Plavix, and his Lipitor dose was increased. Will follow up with Dr. Wen and will need a CBC and a BMP in 1 week. Objective Vital signs: Temp Pulse Resp BP Pulse Ox 98.2 F 66 19 162/77 H 97 04/07/20 07:30 04/07/20 08:00 04/07/20 07:30 04/07/20 07:30 04/07/20 09:52 Narrative: - Constitutional no acute distress Comments: conversant - *Routine HEENT Exam Head: Present: normocephalic Eye: Present: EOMI ENT: Present: mucous membranes moist - *Routine Neck Exam Present: supple. Absent: lymphadenopathy - *Routine Respiratory Exam Present: crackles (few bibasilar) - *Routine Cardiovascular Exam Present: RRR - *Routine Abdominal Exam Present: soft, normoactive bowel sounds. Absent: tenderness - *Routine Extremities Exam Present: edema (2+ bilateral lower extremities), amputation (right mid foot, left toes). Absent: cyanosis, clubbing - *Routine Skin Exam Present: warm, wounds (right sole 4cm x 4 cm (see photo in nurses note)). Absent: rash - *Routine Neurological Exam Present: alert, oriented X3 DS: Diagnosis - Discharge Diagnosis (1) Acute respiratory failure with hypoxia Status: Acute (2) Elevated troponin I level Status: Acute (3) Non-STEMI (non-ST elevated myocardial infarction) Status: Acute (4) Diabetes mellitus Status: Acute (5) HTN (hypertension) Status: Acute (6) Obesity Status: Acute (7) Fluid retention Status: Acute (8) Pulmonary edema Status: Acute (9) Wound of foot Status: Acute (10) Anemia Status: Acute Discharge Plan - Patient Discharge Instructions ACTIVITY: Continue current activity DIET: diabetic diet, low fat, low cholesterol, cardiac Additional Instructions: CBC and BMP in 1 week at f/u visit with Samson Ames. Patient Instructions: DI for Heart Attack, DI for Cardiac Catheterization, Low-Sodium Diet - Follow up Plan Follow up with: Melina De La Fuente MD [Primary Care Provider] - 2 weeks (please call for follow uop appointment) Samson Ames PA [Physician Chief Jailer] - 04/14/20 2:30 pm Disposition: Home, Self-Senior Care Medications: Home Medications Medication Instructions Recorded Confirmed Type Aspirin [Aspirin 81mg chewable 81 mg P
== END 2020-04-07 12:03 | disposition home or self-care (01) | DRG 246 ==
LOC: ER 14:16 → 2ND 14:47
PROVIDERS: Internal Medicine; Nurse Practitioner Family; Admitting Provider Family Medicine; Emergency Provider Emergency Medicine; PCP Internal Medicine; Visit Provider Family Medicine
PROC: 027135Z Dilation of Coronary Artery, Two Arteries with Two Drug-eluting Intraluminal Devices, Percutaneous Approach (ICD-10-PCS; principal; 2020-04-06 14:40)
DX: J96.01 Acute respiratory failure with hypoxia (principal); I21.4 Non-ST elevation (NSTEMI) myocardial infarction; L97.419 Non-pressure chronic ulcer of right heel and midfoot with unspecified severity; I10 Essential (primary) hypertension; D64.9 Anemia, unspecified; Z79.4 Long term (current) use of insulin; Z79.899 Other long term (current) drug therapy; E11.621 Type 2 diabetes mellitus with foot ulcer
CPT/HCPCS: 36415; 71045; 80048; 80053; 80076; 81001; 82962; 83880; 84439; 84443; 84484; 85025; 85347; 92928; 93005; 93306; 93458; 94760; 94761; 96374; 99152; 99153; 99284; G0103; C1725; C1769; C1876; C9600; J1644; J2405; Q9967; U0003